=== PATIENT | male | born 1960 | race Caucasian/White ===

== ENCOUNTER 2018-07-29 08:00 | Emergency (ER) | payer MEDICARE, OTHER ==
--- NOTE | 2018-07-29 08:02 | ER Report ---
History and Physical Time Seen By MD: 08:01 HPI/ISABEL CHIEF COMPLAINT: ab pain HISTORY OF PRESENT ILLNESS: Patient is a 58-year-old male presents to the emergency department with acute on chronic abdominal pain. Patient normally lives in [place] but is here to go elk hunting. He is staying at a friend[place] ranch approximately 80 miles outside of [place]. For the last 12 hours he's had increasing diffuse abdominal pain associated with nausea and some vomiting. He also notes dark colored urine. Patient states had multiple abdominal procedures secondary to problems with venous outflow. 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 This causes venous hypertension which leads to abdominal ascites, pain clotting as well as "perforation." He states his last surgical procedure was approximately one year ago in July 2017 at the [facility]. Patient normally takes Lortab for pain but states that this is not helping. For this reason he presents to the emergency department for further evaluation. REVIEW OF SYSTEMS: Constitutional: No fever, no chills. Eyes: No discharge. ENT: No sore throat. Cardiovascular: No chest pain, no palpitations. Respiratory: No cough, no shortness of breath. Gastrointestinal: Abdominal pain, nausea, vomiting Genitourinary: No hematuria. Dark colored urine Musculoskeletal: No back pain. Skin: No rashes. Neurological: No headache. Allergies: Coded Allergies: duloxetine (Verified Allergy, Unknown, 07/29/18) erythromycin base (Verified Allergy, Unknown, 07/29/18) sertraline (Verified Allergy, Unknown, 07/29/18) tramadol (Verified Allergy, Unknown, 07/29/18) Home Meds Reported Medications Docusate Sodium (STOOL SOFTENER) 100 Mg Tablet, 100 MG PO 07/29/18 Iron Polysaccharides Complex (POLYSACCHARIDE IRON 150) 150 Mg Capsule, 325 MG PO, CAPSULE 07/29/18 Potassium Gluconate (POTASSIUM) 99 Mg Tablet, 20 MG PO 07/29/18 Hydrocodone Bit/Acetaminophen (HYDROCODON-ACETAMINOPHEN 5-325) 1 Each Tablet, 1 EACH PO Q4H, TAB 07/29/18 Furosemide (FUROSEMIDE) 40 Mg Tablet, 1 TAB PO Q8H, TAB 07/29/18 Spironolactone (SPIRONOLACTONE) 25 Mg Tablet, 50 MG PO, TAB 07/29/18 Warfarin Sodium (WARFARIN SODIUM) 5 Mg Tablet, 5 MG PO QDAY, TAB 07/29/18 Past Medical/Surgical History Past medical history with multiple abdominal surgeries secondary to decreased blood flow patient states he has "no portal venous system". Is on chronic Coumadin to prevent clots. 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 His last procedure was approximately a year ago which was an endoscopy to "cauterize a hole" in his intestines. Patient also suffers from chronic ascites. And chronic abdominal pain. Constitutional Vital Sign - Last 24 Hours 07/29/18 07/29/18 07/29/18 07/29/18 08:00 08:06 08:09 08:13 Temp 98.0 Pulse ??? 84 Resp 12 B/P (MAP) 116/81 116/81 (93) 119/82 (94) Pulse Ox 93 O2 Delivery Room Air 07/29/18 07/29/18 07/29/18 07/29/18 08:15 08:30 08:45 09:00 Pulse 81 89 76 77 Resp 20 15 22 9 B/P (MAP) 122/85 (97) Pulse Ox 95 96 94 93 07/29/18 07/29/18 07/29/18 07/29/18 09:03 09:15 09:23 09:30 Pulse ??? 75 Resp 13 B/P (MAP) 126/71 (89) 108/73 (85) Pulse Ox 93 07/29/18 07/29/18 07/29/18 07/29/18 09:40 09:45 09:50 10:00 Pulse 80 76 Resp 24 8 B/P (MAP) 102/74 (83) 103/69 (80) Pulse Ox 93 90 07/29/18 07/29/18 07/29/18 07/29/18 10:05 10:20 10:35 10:40 Pulse 77 76 73 Resp 10 18 11 B/P (MAP) 101/70 (80) ???/??? (1665) Pulse Ox 96 96 96 07/29/18 07/29/18 07/29/18 07/29/18 10:50 11:05 11:20 11:35 Pulse 75 77 ??? 74 Resp 25 20 14 27 B/P (MAP) 109/75 (86) Pulse Ox 93 93 93 93 07/29/18 07/29/18 07/29/1818 11:40 11:45 12:00 12:15 Pulse 73 72 ??? Resp 28 12 22 B/P (MAP) 101/71 (81) Pulse Ox 97 96 96 07/29/18 07/29/18 07/29/18 07/29/18 12:20 12:30 12:40 12:45 Pulse 76 ??? Resp 26 B/P (MAP) 113/81 (92) 115/80 (92) Pulse Ox 92 Intake and Output 07/29/18 07/29/18 07/30/18 15:00 23:00 07:00 Intake Total 1000 ml Balance 1000 ml Physical Exam General/Constitutional: Patient is awake, alert, ill-appearing but nontoxic. Head: Normocephalic and atraumatic. Eyes: Conjunctival clear, Sclera are clear and anicteric. Oropharyngeal: Mucous membranes are moist. There is no pharyngeal erythema or exudate. There are no palatal petechiae. Uvula is midline and symmetrical. Neck: Supple, no adenopathy. Cardiovascular: Heart is regular rate and rhythm without audible murmurs, rubs or gallops. Pulmonary: Lungs are clear to auscultation bilaterally. There are no wheezes, rales, or rhonchi. Chest rise is symmetrical Abdomen: Distended with diffuse tenderness, [place] Extremities: No gross deformities, No peripheral cyanosis. Able to move all 4 extremities. Neuro: Alert and oriented X3, Skin: No rashes, skin is warm dry and well perfused. Medical Decision Making Data Points Result Diagram: 07/29/18 0812 07/29/18 0812 Laboratory Hematology Test 07/29/18 08:05 07/29/18 08:12 07/29/18 08:42 07/29/18 09:40 Urine Color [facility] Urine Clarity Clear Urine pH 6.0 pH (4.8-9.5) Urine Specific [place] 1.028 Urine Protein Negative mg/dL (NEGATIVE) Urine Glucose (UA) Negative mg/dL (NEGATIVE) Urine Ketones Trace mg/dL (NEGATIVE) Urine Blood Negative (NEGATIVE) Urine Nitrite Negative (NEGATIVE) Urine Bilirubin Negative (NEGATIVE) Urine Urobilinogen 2.0 mg/dL (0.2-1.9) Urine Leukocyte Esterase Negative (NEGATIVE) Urine RBC 7 /HPF (0-2/HPF) Urine WBC 1 /HPF (0-5/HPF) Urine Squamous Epithelial Cells None /LPF (</=FEW) Urine Bacteria Few /HPF (NONE-FEW) Urine Mucus Few /HPF (NONE-FEW) Red Blood Count 4.79 M/uL (4.00-5.60) Mean Corpuscular Volume 94.4 fL (80.0-96.0) Mean Corpuscular Hemoglobin 31.4 pg (26.0-33.0) Mean Corpuscular Hemoglobin Concent 33.3 g/dL (32.0-36.0) Red Cell Distribution Width 16.7 % (11.5-14.5) Mean Platelet Volume 8.6 fL (7.2-11.1) Neutrophils (%) (Auto) 88.7 % (39.4-72.5) Lymphocytes (%) (Auto) 6.5 % (17.6-49.6) Monocytes (%) (Auto) 4.7 % (4.1-12.4) Eosinophils (%) (Auto) 0.0 % (0.4-6.7) Basophils (%) (Auto) 0.1 % (0.3-1.4) Nucleated RBC Relative Count (auto) 0.0 /100WBC Neutrophils # (Auto) 8.9 K/uL (2.0-7.4) Lymphocytes # (Auto) 0.7 K/uL (1.3-3.6) Monocytes # (Auto) 0.5 K/uL (0.3-1.0) Eosinophils # (Auto) 0.0 K/uL (0.0-0.5) Basophils # (Auto) 0.0 K/uL (0.0-0.1) Nucleated RBC Absolute Count (auto) 0.00 K/uL Prothrombin Time 24.8 seconds (12.0-14.4) Prothromb Time International Ratio 2.20 Activated Partial Thromboplast Time 37 seconds (23-35) Sodium Level 138 mmol/L (137-145) Potassium Level 4.3 mmol/L (3.5-5.0) Chloride Level 101 mmol/L (98-107) Carbon Dioxide Level 29 mmol/L (22-30) Blood Urea Nitrogen 20 mg/dl (9-21) Creatinine 0.80 mg/dl (0.66-1.25) Glomerular Filtration Rate Calc > 60.0 Random Glucose 134 mg/dl (75-110) Calcium Level 9.1 mg/dl (8.4-10.2) Total Bilirubin 0.7 mg/dl (0.2-1.3) Aspartate Amino Transf (AST/SGOT) 38 U/L (0-35) Alanine Aminotransferase (ALT/SGPT) 40 U/L (0-56) Alkaline Phosphatase 86 U/L (0-126) Total Protein 7.1 g/dl (6.3-8.2) Albumin 3.4 g/dl (3.5-5.0) Lipase 52 U/L (23-300) Helicobacter pylori IgG Antibody Negative (NEGATIVE) Lactate 1.2 mmol/L (0.7-2.1) Ammonia < 9 UMOL/L (9-33) Stool Occult Blood (IFOB) Positive (NEGATIVE) Chemistry Test 07/29/18 08:05 07/29/18 08:12 07/29/18 08:42 07/29/18 09:40 Urine Color [facility] Urine Clarity Clear Urine pH 6.0 pH (4.8-9.5) Urine Specific [place] 1.028 Urine Protein Negative mg/dL (NEGATIVE) Urine Glucose (UA) Negative mg/dL (NEGATIVE) Urine Ketones Trace mg/dL (NEGATIVE) Urine Blood Negative (NEGATIVE) Urine Nitrite Negative (NEGATIVE) Urine Bilirubin Negative (NEGATIVE) Urine Urobilinogen 2.0 mg/dL (0.2-1.9) Urine Leukocyte Esterase Negative (NEGATIVE) Urine RBC 7 /HPF (0-2/HPF) Urine WBC 1 /HPF (0-5/HPF) Urine Squamous Epithelial Cells None /LPF (</=FEW) Urine Bacteria Few /HPF (NONE-FEW) Urine Mucus Few /HPF (NONE-FEW) White Blood Count 10.1 k/uL (4.5-11.0) Red Blood Count 4.79 M/uL (4.00-5.60) Hemoglobin 15.0 g/dL (14.0-18.0) Hematocrit 45.2 % (42.0-52.0) Mean Corpuscular Volume 94.4 fL (80.0-96.0) Mean Corpuscular Hemoglobin 31.4 pg (26.0-33.0) Mean Corpuscular Hemoglobin Concent 33.3 g/dL (32.0-36.0) Red Cell Distribution Width 16.7 % (11.5-14.5) Platelet Count 315 K/uL (150-450) Mean Platelet Volume 8.6 fL (7.2-11.1) Neutrophils (%) (Auto) 88.7 % (39.4-72.5) Lymphocytes (%) (Auto) 6.5 % (17.6-49.6) Monocytes (%) (Auto) 4.7 % (4.1-12.4) Eosinophils (%) (Auto) 0.0 % (0.4-6.7) Basophils (%) (Auto) 0.1 % (0.3-1.4) Nucleated RBC Relative Count (auto) 0.0 /100WBC Neutrophils # (Auto) 8.9 K/uL (2.0-7.4) Lymphocytes # (Auto) 0.7 K/uL (1.3-3.6) Monocytes # (Auto) 0.5 K/uL (0.3-1.0) Eosinophils # (Auto) 0.0 K/uL (0.0-0.5) Basophils # (Auto) 0.0 K/uL (0.0-0.1) Nucleated RBC Absolute Count (auto) 0.00 K/uL Prothrombin Time 24.8 seconds (12.0-14.4) Prothromb Time International Ratio 2.20 Activated Partial Thromboplast Time 37 seconds (23-35) Glomerular Filtration Rate Calc > 60.0 Calcium Level 9.1 mg/dl (8.4-10.2) Total Bilirubin 0.7 mg/dl (0.2-1.3) Aspartate Amino Transf (AST/SGOT) 38 U/L (0-35) Alanine Aminotransferase (ALT/SGPT) 40 U/L (0-56) Alkaline Phosphatase 86 U/L (0-126) Total Protein 7.1 g/dl (6.3-8.2) Albumin 3.4 g/dl (3.5-5.0) Lipase 52 U/L (23-300) Helicobacter pylori IgG Antibody Negative (NEGATIVE) Lactate 1.2 mmol/L (0.7-2.1) Ammonia < 9 UMOL/L (9-33) Stool Occult Blood (IFOB) Positive (NEGATIVE) Coagulation Test 07/29/18 08:12 Prothrombin Time 24.8 seconds Prothromb Time International Ratio 2.20 Activated Partial Thromboplast Time 37 seconds Urinalysis Test 07/29/18 08:05 Urine Color [facility] Urine Clarity Clear Urine pH 6.0 pH (4.8-9.5) Urine Specific [place]el 1.028 Urine Protein Negative mg/dL (NEGATIVE) Urine Glucose (UA) Negative mg/dL (NEGATIVE) Urine Ketones Trace mg/dL (NEGATIVE) Urine Blood Negative (NEGATIVE) Urine Nitrite Negative (NEGATIVE) Urine Bilirubin Negative (NEGATIVE) Urine Urobilinogen 2.0 mg/dL (0.2-1.9) Urine Leukocyte Esterase Negative (NEGATIVE) Urine RBC 7 /HPF (0-2/HPF) Urine WBC 1 /HPF (0-5/HPF) Urine Squamous Epithelial Cells None /LPF (</=FEW) Urine Bacteria Few /HPF (NONE-FEW) Urine Mucus Few /HPF (NONE-FEW) EKG/Imaging Imaging FACILITY: [facility] - [place] PATIENT NAME: Montez Robison : 1960 MR: [id number] V: [id number] EXAM DATE: [id number] ORDERING PHYSICIAN: BARBARA SANTOYO TECHNOLOGIST: Location[place] [facility] [place] Patient: Montez Robison : 1960 Visit/Account:[id number] Date of Sevice: 07/29/2018 ABDOMEN/PELVIS WITH CONTRAST COMPARISONS: None. ADDITIONAL PERTINENT HISTORY: Abdominal pain with history of venous hypertension TECHNIQUE: Multiple axial images were obtained from the lung bases through the lesser trochanters before and after the IV administration of IV contrast. One of the following dose optimization techniques was utilized in the performance of this exam: Automated exposure control; adjustment of the mA and/or kV according to the patient's size; or use of an iterative reconstruction technique. Specific details can be referenced in the facility's radiology CT exam operational policy. CONTRAST: 75 ml of Isovue-370 FINDINGS: Lung bases: Mild bibasilar regions of scarring. Free air and free fluid: No free air noted. Moderate amount of free fluid within the pelvis and abdomen with findings concerning for a loculated fluid collection involving the left midabdomen measuring 6.7 x 9.8 cm. Liver: Shrunken appearance of the liver with an irregular margin of the liver compatible with underlying cirrhosis. No focal mass within the liver. Spleen: Findings most consistent with a previous splenectomy. There is a small smoothly enhancing region measuring 2.3 cm within the bed of the spleen likely representing a small splenule. Kidneys, ureters and urinary bladder: Small low-attenuation lesion involving the lower pole of the left kidney consistent with a small cyst. Adrenal glands: Negative. Pancreas: Negative. Gallbladder: Slightly contracted gallbladder with evidence of underlying cholelithiasis without CT evidence of acute cholecystitis. Bowel and mesentery: Multiple dilated loops of small bowel involving the proximal small bowel with a transition point within the proximal to mid jejunum concerning for developing small bowel obstruction. Mild edema involving the wall of the colon and small bowel likely representing edema related to the underlying portal venous hypertension. Pelvic contents: Moderate enlargement of the prostate. Lymph node assessment: Negative. Retroperitoneum: Negative. Abdominal vasculature: Innumerable varices within the mesentery as well as the paraesophageal region. There is been recannulization of the umbilical vein. Findings compatible with previous occlusion of the portal vein with cavernous transformation of the portal vein. Surrounding soft tissues: Negative. Osseous structures: Spondylitic change involving the lumbar spine. No acute appearing bony abnormalities. IMPRESSION: 1. Findings compatible with underlying portal venous hypertension with innumerable varices within the abdomen. 2. Underlying changes likely related to previous occlusion of the portal vein with cavernous transformation of the portal vein. 3. Cirrhotic appearance of the liver. 4. Findings concerning for developing small bowel obstruction within the mid to proximal jejunum as the transition point. Report Dictated By: Héctor San MD at 07/29/2018 10:16 AM Report E-Signed By: Héctor San MD at 07/29/2018 10:25 AM [id number] ED Course/Re-evaluation Clinical Indication for ER IV: Hydration, IV Access ED Course 07/29/2018 8:41:07 am patient with abdominal pain. History of chronic abdominal pain. Plan at this time will be to check CBC CMP and lipase coagulation panel will also check lactate as well as ammonia level. We will give IV fluids perform a CT scan of the abdomen and pelvis. We will attempt to get records from the [facility] with regard to his diagnosis and surgical procedures. 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 He was admitted at that time secondary to increasing abdominal pain, melena and a new duodenal varices which was concerning for a spleen no renal shunt failure. Apparently his history dates back to 1992 when he initially developed hematemesis and was found to have esophageal and gastric varices. He was seen at the [facility] where he had extensive liver workup including biopsy which did not reveal evidence of liver disease as the underlying etiology. He was ultimately found to have idiopathic venous thrombosis. He developed significant ascites and underwent an attempted TIPS procedure resulting in severe liver laceration due to intra-abdominal hemorrhage which required a prolonged hospitalization and large volume transfusion. Due to ongoing ascites he had a peritoneal venous shunt placed in May 1993 which was then complicated by thrombosis an infection and ultimately removed in 1993 after removal of the shunt he supposedly did well with just diuretic management of his ascites. He did have multiple subsequent episodes of melena from presumed varic eal bleeding which did require repeated transfusions and hospitalizations. He was ultimately seen at the [facility] by in 1996 CT of the abdomen and pelvis at that time showed findings consistent with chronic portal vein thrombosis including numerous periportal collaterals and cavernous t ransformation. EGD identified numerous esophageal gastric varices which were banded as well as congestive gastropathy. In June 1997 he was admitted to [facility] with significant postprocedural bleeding requiring the placement of a [place] tube followed by multiple subsequent EGDs and banding's. He ultimately underwent a central splenorenal shunt with splenectomy performed by Dr. Wilson. After this procedure she did extremely well for almost 20 years without further episodes of GI bleeding, ascites or other complications of portal hypertension. He does have a history of chronic abdominal pain which has been present since his operations which she takes [place] twice daily 4. The pain has been relatively stable over the past 20 years. Then in July 2017 he presented with melena and worsening abdominal pain. He was admitted to the hospital at that time and had serial hemoglobins which showed a decrease from 13.5-10 and then to a 0.5. He was subsequently started on a Protonix drip and flown to the [facility] for further management. An EGD was done at that time which showed congestive duodenopathy, without evidence of varices. CT venogram demonstrated acute SMV, renal and splenic venous thrombosis as the likely cause of symptoms. He was initiated on IV heparin therapy sent home on Lovenox injections while bridging to warfarin. He was started on gabapentin for his a bdominal pain and Bentyl for spasms. Patient's INR goal is 1.8 - 2.5. Re-evaluation 07/29/2018 10:57:58 am had approximately 15 minute discussion with the patient and son after I spoke with a consult to our general surgeon Dr. Ashleigh Sauer. With patient's finding of a bowel obstruction on CT scan the discussion was whether this patient should be admitted or transferred secondary to his complex medical history. Dr. Sauer felt that our facility lack to the appropriate reso urces to treat this patient if he and Having a bleeding problem or required a surgery. Her recommendation was to transfer to the [facility] which be the closest most appropriate facility that would be able to handle this patient. Discussion with the patient he is very against there being transferred or hospitalized at this time. I did explain the serious nature of his CT finding of a bowel obstruction and that this condition could rapidly worsen and potentially be life-threatening if left untreated. Despite multiple attempts to convince him otherwise the patient feels strongly against admission at this time. I had the patient discussed with the son again reinforcing that my only recommendation would be admission which would require transfer. They are now calling the patient's and having a discussion about what would be the best course of action. If patient decides against transfer we will have him sign an against medical advice form. Patient is very well aware that I explained to him his condition could potentially be life-threatening and his idiopathic zain ous thrombosis significantly complicated any type of surgical procedures he might require, making him an extremely complicated patient. I will readdress whether the patient wants to be transferred or if he will sign out against medical advice after the family has their own discussion. The patient is clearly mentally capable and able to make his own medical decisions. 07/29/2018 11:24:07 am spoke with the patient and son again they are now agreeable to being evaluated at [facility]. I will call general surgery and explained the case to them to see if they will be willing to accept this patient for evaluation and treatment. 07/29/2018 12:00:13 pm patient has now decided to accept transfer to [facility]. I did speak with the surgeon ux consultant ; history physical exam all pertinent past medical history imaging studies and blood work were discussed. She will agree to evaluate the patient down in the [facility] in the emergency department. I did speak with who is the ER physician currently working and he agreed to accept the patient at this time. We will send patient with medical records from the [facility] admission last year in 2017. Along with imaging studies that should be pushed to the [facility]. There is discussion about placement of an NG tube. I did discuss with our surgeon Dr. Sauer she felt that because of his significant medical history of varices that H2 placement this time would be risky and could cause a complication that we would not be able to manage at our facility. I discussed this with the patient as well and he wants to hold on the NG tube at this time. Patient has not vomited since arriving to the emergency department. Pain has been controlled since his dose of Dilaudid and his nausea is resolved after Zofran. We'll make arrangements transport patient to [facility] at this time. Decision to Disposition Date: Jul 29, 2018 Decision to Disposition Time: 12:03 Depart Departure Latest Vital Signs Vital Signs Date Time Temp Pulse Resp B/P (MAP) Pulse Ox O2 Delivery O2 Flow Rate FiO2 07/29/18 12:45 ??? 07/29/18 12:40 115/80 (92) 07/29/18 12:30 26 92 07/29/18 08:06 98.0 Room Air Impression: Primary Impression: Small bowel obstruction Condition: Improved Disposition: XFER TO ACUTE CARE HOSPITAL (To Dr Bashir at [facility]) BARBARA SANTOYO MD Jul 29, 2018 08:02
[2018-07-29] MEDS ORDERED: NS(*) 0.9% 1000 ML BAG 1,000 ML IV ONE (08:32)
[2018-07-29] MEDS ORDERED: DOCU100T19 PO (08:33)
[2018-07-29] MEDS ORDERED: FURO-47 PO (08:33)
[2018-07-29] MEDS ORDERED: IRON150C19 PO (08:33)
[2018-07-29] MEDS ORDERED: WARF5TAB23 PO (08:33)
[2018-07-29] MEDS ORDERED: SPIR25TA80 PO (08:33)
[2018-07-29] MEDS ORDERED: HYDR-385 PO (08:33)
[2018-07-29] MEDS ORDERED: POTA99TA6 PO (08:33)
[2018-07-29] MEDS ORDERED: MORPHINE 4 MG/ML SDV IVP ONE (08:35)
[2018-07-29] MEDS ORDERED: ONDANSETRON 4 MG/2 ML VIAL IVP ONE (08:35)
[2018-07-29 08:43] LABS: PLATELET COUNT, AUTOMATED 315 K/uL (150-450)
[2018-07-29 08:47] LABS: INR 2.2
[2018-07-29] MEDS ORDERED: IOPAMIDOL 76% 75 ML INFUS BTL 75 ML ONE (08:47)
[2018-07-29] MEDS ORDERED: HYDROMORPHONE HCL 1 MG/ML SYRINGE IVP ONE (08:55)
--- NOTE | 2018-07-29 10:29 | RADIOLOGY IMAGING REPORT ---
[place]AC[place] [facility] [place] NAME: Montez Robison : 1960 MR: [id number] V: [id number] EXAM DATE: ORDERING PHYSICIAN: BARBARA SANTOYO TECHNOLOGIST: Location: [facility] - [place] Patient: Montez Robison : 1960 Visit/Account:[id number] Date of Sevice: 07/29/2018 ABDOMEN/PELVIS WITH CONTRAST COMPARISONS: None. ADDITIONAL PERTINENT HISTORY: Abdominal pain with history of venous hypertension TECHNIQUE: Multiple axial images were obtained from the lung bases through the lesser trochanters bef ore and after the IV administration of IV contrast. One of the following dose optimization technique s was utilized in the performance of this exam: Automated exposure control; adjustment of the mA and/ or kV according to the patient's size; or use of an iterative reconstruction technique. Specific de tails can be referenced in the facility's radiology CT exam operational policy. CONTRAST: 75 ml of Isovue-370 FINDINGS: Lung bases: Mild bibasilar regions of scarring. Free air and free fluid: No free air noted. Moderate amount of free fluid within the pelvis and abdom en with findings concerning for a loculated fluid collection involving the left midabdomen measuring 6.7 x 9.8 cm. Liver: Shrunken appearance of the liver with an irregular margin of the liver compatible with underly ing cirrhosis. No focal mass within the liver. Spleen: Findings most consistent with a previous splenectomy. There is a small smoothly enhancing reg ion measuring 2.3 cm within the bed of the spleen likely representing a small splenule. Kidneys, ureters and urinary bladder: Small low-attenuation lesion involving the lower pole of the le ft kidney consistent with a small cyst. Adrenal glands: Negative. Pancreas: Negative. Gallbladder: Slightly contracted gallbladder with evidence of underlying cholelithiasis without CT ev idence of acute cholecystitis. Bowel and mesentery: Multiple dilated loops of small bowel involving the proximal small bowel with a transition point within the proximal to mid jejunum concerning for developing small bowel obstruction . Mild edema involving the wall of the colon and small bowel likely representing edema related to the underlying portal venous hypertension. Pelvic contents: Moderate enlargement of the prostate. Lymph node assessment: Negative. Retroperitoneum: Negative. Abdominal vasculature: Innumerable varices within the mesentery as well as the paraesophageal region. There is been recannulization of the umbilical vein. Findings compatible with previous occlusion of the portal vein with cavernous transformation of the portal vein. Surrounding soft tissues: Negative. Osseous structures: Spondylitic change involving the lumbar spine. No acute appearing bony abnormalit ies. IMPRESSION: 1. Findings compatible with underlying portal venous hypertension with innumerable varices within the abdomen. 2. Underlying changes likely related to previous occlusion of the portal vein with cavernous transfor mation of the portal vein. 3. Cirrhotic appearance of the liver. 4. Findings concerning for developing small bowel obstruction within the mid to proximal jejunum as t he transition point. Report Dictated By: Héctor San MD at 07/29/2018 10:16 AM Report E-Signed By: Héctor San MD at 07/29/2018 10:25 AM WSN:[id number]
[2018-07-29 12:40] VITALS: BP 115/80
== END 2018-07-29 13:00 | disposition short-term general hospital (02) ==
LOC: ER 08:22
DX: K56.609 Unspecified intestinal obstruction, unspecified as to partial versus complete obstruction (principal)
CPT/HCPCS: 36415; 74177; 81001; 82140; 82274; 83605; 83690; 85025; 85610; 85730; 86677; 86850; 86900; 86901; 87088; 96361; 96374; 96375; 99285; J1170; J2270; J2405; J7030; Q9967; 82040; 82247; 82310; 82374; 82435; 82565; 82947; 84075; 84132; 84155; 84295; 84450; 84460; 84520

== ENCOUNTER → 2018-07-29 | Outpatient (CLI) | payer MEDICARE, OTHER ==
[~2018-07-29] MED LIST: DOCU100T19 PO; FURO-47 PO; HYDR-385 PO; IRON150C19 PO; POTA99TA6 PO; SPIR25TA80 PO; WARF5TAB23 PO
== END ==
LOC: AMB 12:42
PROVIDERS: ATTEND Nurse Practitioner
DX: K56.609 Unspecified intestinal obstruction, unspecified as to partial versus complete obstruction (principal)
CPT/HCPCS: A0425; A0426